=== PATIENT | female | born 1930 | race Caucasian/White ===

== ENCOUNTER 2018-09-28 12:20 | Emergency (ER) | payer OTHER ==
[~2018-09-28] VITALS: Ht 152.4 cm; Wt 63.5 kg
[2018-09-28] MEDS ORDERED: HUMALOG100 UNIT/1 (13:03)
[2018-09-28] MEDS ORDERED: TOPROL XL100 MG (13:03)
[2018-09-28] MEDS ORDERED: LANTUS SOL100 UNIT/1 (13:03)
[2018-09-28] MEDS ORDERED: DIALYVITE 800-1 EACH (13:04)
[2018-09-28] MEDS ORDERED: NORVASC2.5 M1 (13:04)
[2018-09-28] MEDS ORDERED: CILOXAN5 ML (13:06)
== END 2018-09-28 15:43 | disposition home or self-care (01) ==
LOC: ER 12:20
DX: G50.0 Trigeminal neuralgia (principal)